=== PATIENT | male | born 1995 | race Hispanic/Latino ===

== ENCOUNTER 2020-10-13 07:39 | Emergency (ER) | payer OTHER ==
[2020-10-13] MEDS ORDERED: TETANUS/DIPHTHERIA TOXOID [ADULT] 0.5 ML VIAL IM ONE (07:59)
[2020-10-13] MEDS ORDERED: ACETAMINOPHEN 325 MG TAB ONE (07:59)
[2020-10-13] MEDS ORDERED: LIDOCAINE HCL 1% 20 ML VIAL ONE (08:05)
== END 2020-10-13 09:33 | disposition home or self-care (01) ==
LOC: EDH 07:39
DX: S51.812A Laceration without foreign body of left forearm, initial encounter (principal); S61.412A Laceration without foreign body of left hand, initial encounter; W26.0XXA Contact with knife, initial encounter; Y93.89 Activity, other specified; Y92.89 Other specified places as the place of occurrence of the external cause; Y99.8 Other external cause status
CPT/HCPCS: 12031; 12042; 73090; 73130; 90471; 90714